=== PATIENT | female | born 1970 | race Caucasian/White ===

== ENCOUNTER 2016-06-24 14:45 | Emergency (ER) | payer OTHER ==
[~2016-06-24] VITALS: Ht 177.8 cm; Wt 99.8 kg
[~2016-06-24 14:45] MED LIST: ADVAIR DISKUS1 UNIT INH; ALBUTEROL2.5 MG/3 M INH/SOL; ALPRAZOLAM2 MG PO; BENZONATATE100 M1 PO; BENZTROPINE MESY2 MG PO; COMBIVENT RESPI1 SPR INH; COMBIVENT RESPIM4 GM INH; ESCITALOPRAM10 MG PO; FEXMID7.5 MG PO; FLOVENT HFA12 G1 INH; GABAPENTIN300 MG PO; HALDOL 5MG TABLE5 MG PO; HALOPERIDOL2 MG PO; LIDODERM1 EACH TOP; LORAZEPAM0.5 M1 PO; NARCAN4 MG NAS; NEXIUM40 M1 PO; OXYCODONE HCL10 M2 PO; PAROXETINE HCL30 M1 PO; PERCOCET 5-3251 EACH PO; PREDNISONE50 M1 PO; PROVENTIL HFA6.7 GM PO; REMERON30 MG PO; SEROQUEL XR400 M1 PO; SEROQUEL XR50 M1 PO; ULTRAM(MONOGRAP50 MG PO; VITAMIN D250000 UNIT PO; ZITHROMAX250 M2 PO
[2016-06-24 14:53] VITALS: BP 137/94
--- NOTE | 2016-06-24 15:22 | ED GENERAL ADULT ---
History of Present Illness General Chief Complaint: Psychiatric Related Complaint Stated Complaint: ANXIETY Source: patient, old records Exam Limitations: no limitations Vital Signs & Intake/Output Vital Signs & Intake/Output Vital Signs Date Time Temp Pulse Resp B/P Pulse O2 O2 Flow FiO2 Ox Delivery Rate 06/24 1453 98.3 89 16 137/94 100 Room Air Allergies Coded Allergies: Penicillins (RASH 10/16/15) aspirin (HIVES 10/16/15) red dye (SWOLLEN TOUNGE 10/16/15) Reconcile Medications Albuterol Sulfate 2.5 MG/3 ML VIAL.NEB 1 Vial INH/TANJA PRN ASTHMA/COPD/ EMPHYSEMA (Reported) Benzonatate 100 MG CAPSULE 1 CAP PO TID COUGH (Reported) Cyclobenzaprine HCl (Fexmid) 7.5 MG TABLET 1 TAB PO BID MUSCLE SPASMS ( Reported) Ergocalciferol (Vitamin D2) (Vitamin D2) 50,000 UNIT CAPSULE 1 CAP PO QW SUPPLEMENT (Reported) Esomeprazole (Nexium) 40 MG CAPSULE.DR 1 CAP PO DAILY GI (Reported) Fluticasone Propionate (Flovent Hfa) 12 GM AER.W.ADAP 2 PUF INH BID ASTHMA/ COPD/EMPHYSEMA (Reported) Ipratropium/Albuterol Sulfate (Combivent Respimat Inhal [place]) 4 GM MIST.INHAL 2-3 PUFF INH DAILY ASTHMA/COPD/EMPHYSEMA (Reported) Lidocaine (Lidoderm) 1 EACH ADH..PATCH 1 PAT TOP PRN PAIN (Reported) may wear up to 12 hours Lorazepam 0.5 MG TABLET 1 TAB PO DAILY PRN ANXIETY (Reported) Naloxone HCl (Narcan) 4 MG SPRAY 4 MG ELISEO AD PRN OPIOID OVERUSE (Reported) Oxycodone HCl 10 MG TABLET 1 TAB PO Q6H PAIN (Reported) Paroxetine HCl 30 MG TABLET 1 TAB PO QHS MENTAL HEALTH (Reported) Quetiapine Fumarate (Seroquel XR) 400 MG TAB.ER.24H 1 TAB PO QPM MENTAL HEALTH (Reported) Quetiapine Fumarate (Seroquel XR) 50 MG TAB.ER.24H 1 TAB PO QPM MENTAL HEALTH (Reported) Triage Note: PT TO ED FROM PD LOCK UP, REPORTS SHE WAS DRINKING HEAVILY LAST NIGHT WITH HER COUSIN AND ENDED UP GETTING ARRESTED, PT IS UNSURE WHY SHE WAS ARRESTED STATING "I WAS TOTALLY BLACKED OUT, I DONT NORMALLY DRINK LIKE THAT." PT STATES SHE SUFFERS FROM SEVERE ANXIETY AND WASN'T ABLE TO TAKE HER 1 MG XANAX THIS AM BECAUSE SHE WAS IN LOCK UP. DENIES SI/HI, JUST REQUESTING A XANAX. Triage Nurses Notes Reviewed? yes : No Patient currently breastfeeds: No HPI: Patient is a 45-year-old female presents complaining of anxiety and low back pain. Patient reports she has not had her Xanax since yesterday. Patient takes 1 mg of Xanax 3 times a day. Patient one out drinking alcohol yesterday evening and then awoke in police lockup. Patient does not recall the events that led to her getting arrested. Due to being in custody patient has not been able to take her antianxiety medication. Patient reports anxiety is currently severe. Patient also reporting low back pain. Patient has a history of chronic low back pain, pain is consistent with her chronic pain. Patient does not recall any fall or known trauma. Patient denies headache, neck pain, illicit substance ingestion. (NESTOR BARBOSA) Past History Travel History Traveled to [place] past 21 day No Medical History Any Pertinent Medical History? 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 No (NESTOR BARBOSA) Review of Systems Review of Systems Constitutional: Reports: no symptoms. EENTM: Reports: no symptoms. Respiratory: Denies: cough, short of breath. Cardiovascular: Denies: chest pain. GI: Denies: abdominal pain, nausea, vomiting. Genitourinary: Reports: no symptoms. Musculoskeletal: Reports: back pain. Denies: neck pain. Skin: Reports: no symptoms. Neurological/Psychological: Reports: anxiety. Denies: headache, numbness. Hematologic/Endocrine: Denies: bruising, bleeding. Immunologic/Allergic: Denies: splenectomy. (NESTOR BARBOSA) Physical Exam Physical Exam General Appearance: well developed/nourished, alert, awake, anxious Head: atraumatic, normal appearance Eyes: Bilateral: normal appearance, PERRL, EOMI. Ears, Nose, Throat: normal pharynx, normal ENT inspection, hearing grossly normal Neck: normal inspection, supple, full range of motion, no midline tenderness Respiratory: normal breath sounds, no respiratory distress, lungs clear Cardiovascular: regular rate/rhythm Gastrointestinal: soft, non-tender Back: mild bilateral lumbar paraspinal tenderness. Surgical scar midline lumbar. No midline lumbar tenderness. No signs of trauma. Extremities: normal inspection, normal capillary refill, normal range of motion, no edema Neurologic/Psych: no motor/sensory deficits, awake, alert, oriented x 3, no suicidal or homicidal ideation. No apparent hallucinations. Skin: warm/dry Core Measures ACS in differential dx? No CVA/TIA Diagnosis: No Severe Sepsis Present: No Septic Shock Present: No (NESTOR BARBOSA) Progress Differential Diagnoses I considered the following diagnoses in my evaluation of the patient: Anxiety, depression, intoxication, polysubstance abuse, trauma Plan of Care: Current Medications Sig/Lorenzo Start time Last Medication Dose Stop Time Status Admin Alprazolam 1 MG ONCE ONE 06/24 1530 AC (Xanax) 06/24 1531 Ketorolac 30 MG ONCE ONE 06/24 1530 AC Tromethamine 06/24 1531 (Toradol) No red flags on exam regarding patient's back pain. No signs of trauma on exam. No suicidal or homicidal ideation. Patient appears stable for discharge. (NESTOR BARBOSA) Initial ED EKG: none (NESTOR BARBOSA) Departure Departure Time of Disposition: 1528 Disposition: HOME OR SELF CARE Condition: Stable Clinical Impression Primary Impression: Anxiety Secondary Impressions: Acute exacerbation of chronic low back pain Referrals: GHAZAL SINCLAIR (PCP/Family) Additional Instructions: Follow-up with your primary care provider if no improvement by tomorrow. Return to the emergency department if worsening of symptoms. Departure Forms: Customer Survey General Discharge Information (NESTOR BARBOSA) PA/BANQUET FOOD SERVER Co-Sign Statement Statement: ED Attending supervision documentation- [] I saw and evaluated the patient. I have also reviewed all the pertinent lab results and diagnostic results. I agree with the findings and the plan of care as documented in the PA's/BANQUET FOOD SERVER's documentation. x I have reviewed the ED Record and agree with the PA's/BANQUET FOOD SERVER's documentation. [] Additions or exceptions (if any) to the PAs/BANQUET FOOD SERVER's note and plan are summarized below: [] (DAYANA MONGE,ZACH) Critical Care Note Critical Care Note Critical Care Time: non-applicable (JUAN ATWOOD,NESTOR)
== END 2016-06-24 15:49 ==
LOC: ERH 14:45
DX: F41.9 Anxiety disorder, unspecified (principal); M54.5 Low back pain
CPT/HCPCS: 96372; J1885

== ENCOUNTER 2016-07-26 17:21 | Emergency (ER) | payer OTHER ==
[~2016-07-26] VITALS: Ht 177.8 cm; Wt 90.7 kg
[2016-07-26 17:40] VITALS: BP 135/85
[2016-07-26] MEDS ORDERED: PERCOCET 5-3251 EACH PO (19:21)
--- NOTE | 2016-07-26 19:22 | ED HEAD/FACIAL INJ COMPLAINT ---
History of Present Illness General Chief Complaint: Fall Stated Complaint: BIBA FALL; BROKEN TEETH Source: patient, old records Exam Limitations: no limitations Vital Signs & Intake/Output Vital Signs & Intake/Output Vital Signs Date Time Temp Pulse Resp B/P Pulse O2 O2 Flow FiO2 Ox Delivery Rate 07/26 1917 100 Room Air 07/26 1740 97.3 91 22 135/85 97 Allergies Coded Allergies: Penicillins (RASH 10/16/15) aspirin (HIVES 10/16/15) red dye (SWOLLEN TOUNGE 10/16/15) Reconcile Medications Albuterol Sulfate 2.5 MG/3 ML VIAL.NEB 1 Vial INH/TANJA PRN ASTHMA/COPD/ EMPHYSEMA (Reported) Benzonatate 100 MG CAPSULE 1 CAP PO TID COUGH (Reported) Cyclobenzaprine HCl (Fexmid) 7.5 MG TABLET 1 TAB PO BID MUSCLE SPASMS ( Reported) Ergocalciferol (Vitamin D2) (Vitamin D2) 50,000 UNIT CAPSULE 1 CAP PO QW SUPPLEMENT (Reported) Esomeprazole (Nexium) 40 MG CAPSULE.DR 1 CAP PO DAILY GI (Reported) Fluticasone Propionate (Flovent Hfa) 12 GM AER.W.ADAP 2 PUF INH BID ASTHMA/ COPD/EMPHYSEMA (Reported) Ipratropium/Albuterol Sulfate (Combivent Respimat Inhal [place]) 4 GM MIST.INHAL 2-3 PUFF INH DAILY ASTHMA/COPD/EMPHYSEMA (Reported) Lidocaine (Lidoderm) 1 EACH ADH..PATCH 1 PAT TOP PRN PAIN (Reported) may wear up to 12 hours Lorazepam 0.5 MG TABLET 1 TAB PO DAILY PRN ANXIETY (Reported) Naloxone HCl (Narcan) 4 MG SPRAY 4 MG ELISEO AD PRN OPIOID OVERUSE (Reported) Oxycodone HCl 10 MG TABLET 1 TAB PO Q6H PAIN (Reported) Oxycodone HCl/Acetaminophen (Percocet 5-325 MG Tablet) 5 MG-325 MG TABLET 1 TAB PO Q4-6 PRN PRN pain Paroxetine HCl 30 MG TABLET 1 TAB PO QHS MENTAL HEALTH (Reported) Quetiapine Fumarate (Seroquel XR) 400 MG TAB.ER.24H 1 TAB PO QPM MENTAL HEALTH (Reported) Quetiapine Fumarate (Seroquel XR) 50 MG TAB.ER.24H 1 TAB PO QPM MENTAL HEALTH (Reported) Triage Note: PER PT SLIPPED ON ICE AND CHIPPED TOOTH REPORTS 02/19 PAIN ARRIVES VIA EMS. NO LOC Triage Nurses Notes Reviewed? yes HPI: Patient states that she slipped on the ice falling forward striking her front teeth on the ground. She has pain to her teeth, she has chronic carious teeth and dental problems. This occurred earlier today. She also has history of chronic pain medication use due to chronic back pain. She has no other injury from fall. She denies any worsening back pain or trauma to the back. No neurologic symptoms no weakness no numbness. No swelling or ecchymosis no bleeding no loose teeth. (NESTOR NAVARRO) Past History Travel History Traveled to [place] past 21 day No Medical History Any Pertinent Medical History? 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 No (NESTOR NAVARRO) Review of Systems Review of Systems Constitutional: Reports: see HPI. EENTM: Reports: see HPI. Respiratory: Reports: no symptoms. Cardiovascular: Reports: no symptoms. GI: Reports: no symptoms. Genitourinary: Reports: no symptoms. Musculoskeletal: Reports: no symptoms. Skin: Reports: no symptoms. Neurological/Psychological: Reports: no symptoms. Hematologic/Endocrine: Reports: no symptoms. Immunologic/Allergic: Reports: no symptoms. All Other Systems: Reviewed and Negative (NESTOR NAVARRO) Physical Exam Physical Exam General Appearance: well developed/nourished Cranial Nerves: normal hearing, normal speech, PERRL Comments: Well-developed well-nourished no apparent distress. HEENT: Atraumatic, extraocular motion intact Patient has generally poor dentition, mild gingival hypertrophy, multiple carious teeth. There are no signs of trauma, no swelling, no ecchymosis, no acutely fractured or loose teeth, no gum swelling or injury no buccal region swelling or injury. No midfacial instability. No bleeding. Neck: Supple, no lymphadenopathy Back: Nontender Respiratory: No respiratory distress Extremities: No edema, full range of motion Neuro: Alert and oriented x3 Psych: Mood affect normal, normal memory normal judgment. Skin: Warm and dry, no rash on exposed skin (NESTOR NAVARRO) Progress Differential Diagnosis: corneal abrasion, c-spine injury, facial fracture, globe injury, ICH, orbit fracture, skull fracture Plan of Care: Current Medications Sig/Lorenzo Start time Last Medication Dose Stop Time Status Admin Ketorolac 30 MG ONCE ONE 07/26 1929 UNVr Tromethamine 07/26 1930 (Toradol) Oxycodone/ 1 TAB ONCE ONE 07/26 1929 UNVr Acetaminophen 07/26 1930 (Percocet) Comments: Patient requested an injection of Dilaudid for her pain from the fall. I discussed with her that I don't feel that this is appropriate considering there are no objective signs of any trauma at all. She was given a Percocet and a prescription for several to go home with. She states she has appointment to see her dentist tomorrow (NESTOR NAVARRO) Departure Departure Disposition: HOME OR SELF CARE Condition: Stable Clinical Impression Primary Impression: Pain, dental Referrals: ZAKI BRAVO,GHAZAL Ruiz (PCP/Family) Additional Instructions: Take medication as directed for pain. Please follow up with her dentist tomorrow as scheduled Departure Forms: Customer Survey General Discharge Information Prescriptions: Current Visit Scripts Oxycodone HCl/Acetaminophen (Percocet 5-325 MG Tablet) 1 TAB PO Q4-6 PRN PRN pain #8 TAB (NESTOR NAVARRO) PA/PILL MACHINE OPERATOR Co-Sign Statement Statement: ED Attending supervision documentation- [] I saw and evaluated the patient. I have also reviewed all the pertinent lab results and diagnostic results. I agree with the findings and the plan of care as documented in the PA's/PILL MACHINE OPERATOR's documentation. x I have reviewed the ED Record and agree with the PA's/PILL MACHINE OPERATOR's documentation. [] Additions or exceptions (if any) to the PAs/PILL MACHINE OPERATOR's note and plan are summarized below: [] (DAYANA MONGE,ZACH)
== END 2016-07-26 19:33 ==
LOC: ERH 17:21
DX: K08.89 Other specified disorders of teeth and supporting structures (principal)
CPT/HCPCS: 96372; J1885

== ENCOUNTER 2016-07-29 16:20 | Emergency (ER) | payer OTHER ==
[2016-07-29 16:25] VITALS: BP 138/85
--- NOTE | 2016-07-29 16:44 | ED THROAT/DENTAL COMPLAINT ---
History of Present Illness General Chief Complaint: Sore Throat, Dental Pain Stated Complaint: TOOTH PAIN Source: patient Exam Limitations: no limitations Vital Signs & Intake/Output Vital Signs & Intake/Output Vital Signs Date Time Temp Pulse Resp B/P Pulse O2 O2 Flow FiO2 Ox Delivery Rate 07/29 1625 97.4 105 16 138/85 97 Room Air Allergies Coded Allergies: Penicillins (RASH 10/16/15) aspirin (HIVES 10/16/15) red dye (SWOLLEN TOUNGE 10/16/15) Reconcile Medications Albuterol Sulfate 2.5 MG/3 ML VIAL.NEB 1 Vial INH/TANJA PRN ASTHMA/COPD/ EMPHYSEMA (Reported) Benzonatate 100 MG CAPSULE 1 CAP PO TID COUGH (Reported) Clindamycin HCl (Cleocin HCl) 300 MG CAPSULE 1 CAP PO TID DENTAL PAIN Clonazepam 0.5 MG TABLET 1 TAB PO BID ANXIETY (Reported) Cyclobenzaprine HCl (Fexmid) 7.5 MG TABLET 1 TAB PO BID MUSCLE SPASMS ( Reported) Esomeprazole (Nexium) 40 MG CAPSULE.DR 1 CAP PO DAILY GI (Reported) Fluticasone Propionate (Flovent Hfa) 12 GM AER.W.ADAP 2 PUF INH BID ASTHMA/ COPD/EMPHYSEMA (Reported) Ipratropium/Albuterol Sulfate (Combivent Respimat Inhal [place]) 4 GM MIST.INHAL 2-3 PUFF INH DAILY ASTHMA/COPD/EMPHYSEMA (Reported) Lorazepam 0.5 MG TABLET 1 TAB PO DAILY PRN ANXIETY (Reported) Lurasidone HCl (Latuda) 60 MG TABLET 1 TAB PO QPM MENTAL HEALTH (Reported) Naloxone HCl (Narcan) 4 MG SPRAY 4 MG ELISEO AD PRN OPIOID OVERUSE (Reported) Paroxetine HCl 30 MG TABLET 1 TAB PO QHS MENTAL HEALTH (Reported) Quetiapine Fumarate (Seroquel XR) 300 MG TAB.ER.24H 1 TAB PO QPM MENTAL HEALTH (Reported) Triage Note: TRIAGE; PT TO ED WITH DENTAL PAIN SINCE LAST SATURDAY. STATES SHE FELL WHILE SHOVELING SNOW AND HIT HER FACE. STATES CAME HERE AND WAS GIVEN 5MG PERCOCETS, WHICH ARE NOT HELPING, WENT TO DENTIST NEXT DAY AND HAD 5 TEETH PULLED, BUT STATES THEY FORGOT ONE AND IS HAVING PAIN CONTINUED THERE. Triage Nurses Notes Reviewed? yes Onset: Abrupt Duration: day(s):, constant, continues in ED Timing: recent history Injury Environment: home Severity: moderate, severe No Modifying Factors: none HPI: 46-year-old female comes into emergency room with complaints of severe upper dental pain. Symptoms have been going on for the past few days. Patient was seen here the other day. Patient reports that she had fallen onto her teeth. Patient had a few teeth pulled by the dentist. Patient reports she still having sharp pain to her left upper tooth. Patient reports that the pain is so severe. Patient is taking the Percocet at home. There is no fever chills vomiting. Denies any other symptoms of symptoms. No SI HI. Past History Travel History Traveled to [place] past 21 day No Medical History Any Pertinent Medical History? 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 No Review of Systems Review of Systems Constitutional: Reports: no symptoms. EENTM: Reports: see HPI. Respiratory: Reports: no symptoms. Cardiovascular: Reports: no symptoms. GI: Reports: no symptoms. Genitourinary: Reports: no symptoms. Musculoskeletal: Reports: no symptoms. Skin: Reports: no symptoms. Neurological/Psychological: Reports: no symptoms. Hematologic/Endocrine: Reports: no symptoms. Immunologic/Allergic: Reports: no symptoms. All Other Systems: Reviewed and Negative Physical Exam Physical Exam General Appearance: well developed/nourished, mild distress Head: atraumatic Eyes: Bilateral: normal appearance. Ears: Bilateral: other (normal inspection). Nose: normal inspection Mouth/Throat: poor dentition, tenderness to left upper molar, incisor Neck: normal inspection Cardiovascular/Respiratory: normal breath sounds, regular rate/rhythm Back: normal inspection Neurologic/Psych: awake, alert, oriented x 3, normal gait, normal mood/affect Skin: intact, normal color Comments: no si/hi Diagram Dental: 1) tenderness, no abscess seen, no other signs of infection Core Measures ACS in differential dx? No Severe Sepsis Present: No Septic Shock Present: No Progress Differential Diagnosis: aspirated tooth, carious tooth, epiglottitis, Ludwigs angina, meningitis, odontogenic abscess, sophia-tonsillar abscess, pharyngeal for. body, stomatitis/gingivitis, strep pharyngitis, tooth fracture Plan of Care: see below Departure Departure Disposition: HOME OR SELF CARE Condition: Stable Clinical Impression Primary Impression: Pain, dental Referrals: ZAKI BRAVO,GHAZAL Ruiz (PCP/Family) Additional Instructions: Take clindamycin as prescribed. Take her Percocet that was prescribed to you at home. Follow-up with dentist tomorrow. Please go over all results of today's visit with your primary care doctor. Contact your primary care doctor to let them know you were here in the emergency room. There may be nonspecific findings which may not be related to your visit today here in the emergency room but may require further evaluation and chronic monitoring by your primary care doctor. If you had a laceration today the chance of foreign body always remains. You should follow-up with your primary care doctor for recheck in 3-5 days for a wound check. If you had an x-ray done there is a chance that a fracture could have been missed on initial read and you should follow-up with your primary care doctor for repeat x-rays if symptoms persist. If your blood pressure was elevated here in the emergency room please have rechecked by her primary care doctor within the next 48 hours by your primary care doctor. If you were prescribed a narcotic here in the emergency room or any type of controlled substances you're not allowed to drive while taking this medication or operate any type of heavy machinery. Narcotics can make you feel lightheaded dizziness nausea and can cause constipation. You may need to hop picker a stool softener. Thank you for choosing [facility] emergency room. Please return to the emergency room immediately if you have any other concerns worsening of symptoms. Departure Forms: Customer Survey General Discharge Information Prescriptions: Current Visit Scripts Clindamycin HCl (Cleocin HCl) 1 CAP PO TID #21 CAP Comments 07/29/2016 4:56:18 PM Patient is pleading for a shot of narcotics for pain. I told the patient it is not indicated at this time. Patient has Percocet at home. Patient is allergic to NSAIDs. I offered the patient a tramadol prescription to take in conjunction as needed for breakthrough pain and she declined because she reports it does not help her with her pain. Patient is asking for Vicodin to go home with. Patient told that she can take her Percocet at home. Patient has no acute emergency that requires her to get IM or IV pain medication. Patient can follow-up with dentist. Patient was very upset that she was not going to get narcotics and through her paperwork at the nurse. Patient was started on clindamycin. Patient told that she needs to see dentist.
[2016-07-29] MEDS ORDERED: LATUDA60 M1 PO (16:47)
[2016-07-29] MEDS ORDERED: SEROQUEL XR300 M1 PO (16:47)
[2016-07-29] MEDS ORDERED: CLONAZEPAM0.5 M2 PO (16:48)
[2016-07-29] MEDS ORDERED: CLEOCIN HCL300 M1 PO (16:49)
== END 2016-07-29 17:01 ==
LOC: ERH 16:20
DX: K08.89 Other specified disorders of teeth and supporting structures (principal)

== ENCOUNTER 2016-08-09 19:53 | Emergency (ER) | payer OTHER ==
[~2016-08-09] VITALS: Ht 175.3 cm; Wt 112.5 kg
[~2016-08-09 19:53] MED LIST changes: +CLEOCIN HCL300 M1 PO; +CLONAZEPAM0.5 M2 PO; +LATUDA60 M1 PO; +SEROQUEL XR300 M1 PO
[2016-08-09 21:02] LABS: ABSOLUTE BASOPHIL COUNT 0.1 /CUMM (0.0-0.2); ABSOLUTE EOSINOPHIL COUNT 0.1 /CUMM (0.0-0.7); ABSOLUTE GRANULOCYTE CT 5.9 /CUMM (1.4-6.5); ABSOLUTE LYMPH COUNT 3.3 /CUMM (1.2-3.4); ABSOLUTE MONOCYTE COUNT 0.9 /CUMM (0.10-0.60); BASOPHIL % 0.6 % (0.0-2.0); GRANULOCYTE % 57.4 % (42.2-75.2); HEMATOCRIT 33.9 % (37-47); MEAN CORPUSCULAR HGB CONC 33.6 G/DL (33.0-37.0); MEAN CORPUSCULAR VOLUME 89.1 FL (81.0-99.0); MEAN PLATELET VOLUME 8.3 FL (7.4-10.4); PLATELET COUNT 287 /CUMM (130-400); RBC DISTRIBUTION WIDTH 13.7 % (11.5-14.5); RED BLOOD CELL CT 3.81 /CUMM (4.20-5.40); WHITE BLOOD CELL COUNT 10.4 /CUMM (4.8-10.8)
--- NOTE | 2016-08-09 22:26 | ED GI/GU/ABDOMINAL COMPLAINT ---
History of Present Illness General Chief Complaint: General Adult Stated Complaint: LEFT SIDE PAIN, STOMACH DISTENDED PER PT Source: patient, family, old records Exam Limitations: no limitations Vital Signs & Intake/Output Vital Signs & Intake/Output Vital Signs Date Time Temp Pulse Resp B/P Pulse O2 O2 Flow FiO2 Ox Delivery Rate 08/10 0145 98.4 89 18 132/82 97 08/09 2020 98.6 96 18 137/85 97 Room Air ED Intake and Output 08/10 0000 08/09 1200 Intake Total 0 Output Total Balance 0 Intake, Oral 0 Patient 248 lb Weight Allergies Coded Allergies: Penicillins (RASH 10/16/15) aspirin (HIVES 10/16/15) hydrocodone (HIVES 08/09/16) red dye (SWOLLEN TOUNGE 10/16/15) Reconcile Medications Albuterol Sulfate 2.5 MG/3 ML VIAL.NEB 1 Vial INH/TANJA PRN ASTHMA/COPD/ EMPHYSEMA (Reported) Benzonatate 100 MG CAPSULE 1 CAP PO TID COUGH (Reported) Clindamycin HCl (Cleocin HCl) 300 MG CAPSULE 1 CAP PO TID DENTAL PAIN Clonazepam 0.5 MG TABLET 1 TAB PO BID ANXIETY (Reported) Cyclobenzaprine HCl (Fexmid) 7.5 MG TABLET 1 TAB PO BID MUSCLE SPASMS ( Reported) Esomeprazole (Nexium) 40 MG CAPSULE.DR 1 CAP PO DAILY GI (Reported) Fluticasone Propionate (Flovent Hfa) 12 GM AER.W.ADAP 2 PUF INH BID ASTHMA/ COPD/EMPHYSEMA (Reported) Ipratropium/Albuterol Sulfate (Combivent Respimat Inhal Maceo) 4 GM MIST.INHAL 2-3 PUFF INH DAILY ASTHMA/COPD/EMPHYSEMA (Reported) Lorazepam 0.5 MG TABLET 1 TAB PO DAILY PRN ANXIETY (Reported) Lurasidone HCl (Latuda) 60 MG TABLET 1 TAB PO QPM MENTAL HEALTH (Reported) Naloxone HCl (Narcan) 4 MG SPRAY 4 MG ELISEO AD PRN OPIOID OVERUSE (Reported) Oxycodone HCl/Acetaminophen (Percocet 5-325 MG Tablet) 5 MG-325 MG TABLET 1-2 TAB PO Q6P severe pain Fill after previous prescription completed. Paroxetine HCl 30 MG TABLET 1 TAB PO QHS MENTAL HEALTH (Reported) Prednisone 20 MG TABLET 1 TAB PO BID bronchospasm Quetiapine Fumarate (Seroquel XR) 300 MG TAB.ER.24H 1 TAB PO QPM MENTAL HEALTH (Reported) Triage Note: PT TO ED C/O LUQ PAIN WITH "BILE COLORED DIARRHEA" FOR 2-3 DAYS. STATES HAS FELT BLOATED FOR 2 WEEKS. +N/V. LAST VOMITTED LAST NIGHT (BILE) URINARY FREQUENCY "BUT I'M DRINKING A LOT" SAW PCP ABOUT SAME THIS AM, TOOK A PERCOCET 5 APPROX 1 HR HEALTH ADVOCATE. Triage Nurses Notes Reviewed? yes LMP (ages 10-50): unknown ? n Is pt currently ? No Onset: 1 month Duration: week(s):, constant, continues in ED, getting worse Timing: recent history Quality/Severity: aching, fullness, severe, vomiting Location: left lower quadrant, left upper quadrant Radiation: no radiation Activities at Onset: none Prior Abdominal Problems: none Past Sexual History: Unobtainable at this time Modifying Factors: Worsens With: eating, palpation. Associated Symptoms: abdominal pain, diarrhea, loss of appetite, nausea/vomiting , weakness HPI: 1 month prior to admission patient complains of left-sided abdominal pain described as fullness moderate to severe associated with distention nonradiating worse with cough and deep breath movement. She has had recent fall fractured teeth requiring extraction and placed on antibiotics which she did not take. She denies fever chills shortness of breath headache dysuria rash bleeding. Past History Travel History Traveled to [place] past 21 day No Medical History Any Pertinent Medical History? 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 No Review of Systems Review of Systems Constitutional: Reports: see HPI, malaise. EENTM: Reports: no symptoms. Respiratory: Reports: see HPI, cough. Cardiovascular: Reports: see HPI, chest pain. GI: Reports: see HPI, abdominal pain, distention, nausea, vomiting. Genitourinary: Reports: no symptoms. Musculoskeletal: Reports: no symptoms. Skin: Reports: no symptoms. Neurological/Psychological: Reports: no symptoms. Hematologic/Endocrine: Reports: no symptoms. Immunologic/Allergic: Reports: no symptoms. All Other Systems: Reviewed and Negative Physical Exam Physical Exam General Appearance: well developed/nourished, alert, awake, anxious, severe distress, obese Head: atraumatic, normal appearance Eyes: Bilateral: normal appearance, PERRL, EOMI, normal inspection. Ears, Nose, Throat, Mouth: hearing grossly normal, moist mucous membrane Neck: normal inspection, supple, full range of motion, normal alignment Respiratory: chest non-tender, no respiratory distress, quiet respiration, lungs clear, decreased breath sounds Cardiovascular: regular rate/rhythm, normal peripheral pulses, norml femoral pulses equa Peripheral Pulses: 4+ carotid (R), 4+ carotid (L) Gastrointestinal: normal bowel sounds, no organomegaly, distention Back: normal inspection, normal range of motion Extremities: normal range of motion, no ligament instability Neurologic/Psych: no motor/sensory deficits, awake, alert, oriented x 3, normal gait, 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 No Severe Sepsis Present: No Septic Shock Present: No Progress Differential Diagnosis: gastritis, kidney stone, ovarian cyst, SBO Plan of Care: Orders Procedure Date/time Status Add-on Test (ER Only) 08/09 2222 Active URINE 08/09 2053 Complete URINALYSIS 08/09 2024 Complete LIPASE 08/09 2024 Complete COMPREHENSIVE METABOLIC PANEL 08/09 2024 Complete CBC WITHOUT DIFFERENTIAL 08/09 2024 Complete AMYLASE 08/09 2024 Complete Laboratory Tests 08/09/162053: Urine Color YEL, Urine Clarity CLDY H, Urine pH 6.0, Ur Specific [place] 1.010, Urine Protein NEG, Urine Ketones NEG, Urine Nitrite NEG, Urine Bilirubin NEG, Urine Urobilinogen 0.2, Ur Leukocyte Esterase NEG, Ur Microscopic EXAM NOT REQUIRED, Urine Hemoglobin NEG, Urine Glucose NEG, Urine Test NEGATIVE 08/09/162042: CBC w Diff NO MAN DIFF REQ, RBC 3.81 L, MCV 89.1, MCH 30.0, RDW 13.7, MPV 8.3, Gran % 57.4, Lymphocytes % 32.1, Monocytes % 8.9, Eosinophils % 1.0, Basophils % 0.6, Absolute Granulocytes 5.9, Absolute Lymphocytes 3.3, Absolute Monocytes 0.9 H, Absolute Eosinophils 0.1, Absolute Basophils 0.1, PUBS MCHC 33.6 08/09/162024: Anion Gap 8, Estimated GFR > 60, BUN/Creatinine Ratio 18.0, Glucose 88, Calcium 8.3 L, Total Bilirubin 0.3, AST 38 H, ALT 48, Alkaline Phosphatase 79, Total Protein 6.2 L, Albumin 3.5, Globulin 2.7, Albumin/Globulin Ratio 1.3, Amylase < 30 L, Lipase 14 L Diagnostic Imaging: Viewed by Me: Radiology Read, CT Scan. Discussed w/RAD: Radiology Read, CT Scan. Radiology Impression: There is a small rounded focus of patchy opacification at the left lung base within the posterior basal segment. Within the left lower lobe adjacent to the pleura on image 17/784, there is a 2 mm nodule. Also within the left lower lobe on image 29, there is a 3 mm nodule. Within the lateral segment right middle lobe, there is a 2 mm nodular density adjacent to the pleura on image 1/784. The visualized lung bases are otherwise clear. The visualized portions of the heart are unremarkable. There is a small hiatal hernia. CXR Impression: Ill-defined opacities within the posterior basal segment of the left lower lobe were better illustrated on the recent CT scan of the abdomen and pelvis. No overt consolidative disease. Initial ED EKG: none Departure Departure Time of Disposition: 113 Disposition: HOME OR SELF CARE Condition: Stable Clinical Impression Primary Impression: Pleurisy Secondary Impressions: Pneumonia Qualifiers: Pneumonia type: due to unspecified organism Laterality: left Lung location: lower lobe of lung Qualified Code: J18.1 - Lobar pneumonia, unspecified organism Referrals: ZAKI BRAVO,GHAZAL Ruiz (PCP/Family) Additional Instructions: Take your clindamycin 3 times a day Departure Forms: Customer Survey General Discharge Information Prescriptions: Current Visit Scripts Prednisone 1 TAB PO BID #10 TAB Oxycodone HCl/Acetaminophen (Percocet 5-325 MG Tablet) 1-2 TAB PO Q6P #15 TAB Fill after previous prescription completed.
--- NOTE | 2016-08-09 23:38 | CT SCAN REPORT ---
EXAMINATION: CT ABDOMEN AND PELVIS WITH CONTRAST CLINICAL INFORMATION: Left-sided abdominal pain. Distention. COMPARISON: None. TECHNIQUE: Contiguous axial thin section helical images of the abdomen and pelvis were performed following the administration of 94 mL of intravenous Optiray 320. The data set was reformatted in the coronal and sagittal planes and reviewed on an independent workstation. DLP: 1206 mGy-cm. FINDINGS: There is a small rounded focus of patchy opacification at the left lung base within the posterior basal segment. Within the left lower lobe adjacent to the pleura on image 17/784, there is a 2 mm nodule. Also within the left lower lobe on image 29, there is a 3 mm nodule. Within the lateral segment right middle lobe, there is a 2 mm nodular density adjacent to the pleura on image 1/784. The visualized lung bases are otherwise clear. The visualized portions of the heart are unremarkable. There is a small hiatal hernia. The liver is of normal size and attenuation without focal lesions nor intrahepatic biliary ductal dilation. A normal gallbladder is identified. There is no wall thickening or discernible pericholecystic fluid. The spleen, pancreas, adrenal glands are unremarkable. Both kidneys are of normal size and attenuation without hydronephrosis or nephrolithiasis. Following the administration of IV contrast, prompt symmetric nephrograms are displayed. There is no abdominal free fluid. There is neither mesenteric nor retroperitoneal lymphadenopathy. Normal unopacified loops of small and large bowel are identified. A normal appendix is identified There is trace likely physiologic pelvic free fluid. The urinary bladder is unremarkable. There is neither pelvic nor inguinal lymphadenopathy. Bone windows: Neither sclerotic nor lytic bone lesions are identified. Posterior spinal fusion hardware is intact. There is disc height loss at L4/L5 and L5/S1. Incidental note is made of a vertebral hemangioma within L1. IMPRESSION: No evidence for acute abdominal or pelvic inflammatory or infectious processes. Small hiatal hernia. 3 pulmonary nodules/nodular densities, none greater than 3 mm. Various management parameters for solitary pulmonary nodules are in the literature. According to the Fleischner Society, recommendations for pulmonary nodules are as follows: Nodule size < or = to 4 mm in LOW RISK PATIENTS: No follow up needed. Nodule size < or = to 4 mm in HIGH RISK PATIENTS: Follow up CT at 12 months; if unchanged, no further follow up. Nodule size > 4-6 mm in LOW RISK PATIENTS: Follow up CT at 12 months; if unchanged, no further follow up. Nodule size > 4-6 mm in HIGH RISK PATIENTS: Initial follow up CT at 6-12 months, then at 18-24 months if no change. Nodule size > 6-8 mm in LOW RISK PATIENTS: Initial follow up CT at 6-12 months, then at 18-24 months if no change. Nodule size > 6-8 mm in HIGH RISK PATIENTS: Initial follow up CT at 3-6 months, then 9-12 months and 24 months if no change. Nodule size > 8 mm in LOW RISK PATIENTS: Follow up CT at around 3, 9, and 24 months, dynamic contrast-enhanced CT, PET, and/or biopsy. Nodule size > 8 mm in HIGH RISK PATIENTS: Same as for low-risk patients.
--- NOTE | 2016-08-10 01:07 | RADIOLOGY REPORT ---
EXAMINATION: XR CHEST CLINICAL INFORMATION: Pneumonia. Question infiltrate of the left lower lobe. COMPARISON: CT scan of the abdomen and pelvis 08/09/2016. TECHNIQUE: 2 views of the chest were obtained. FINDINGS: Ill-defined opacities within the posterior basal segment of the left lower lobe were better illustrated on the recent CT scan of the abdomen and pelvis. There is no overt consolidative disease. No pleural effusion or pneumothorax. The cardiac silhouette and upper mediastinal contours are normal. No acute osseous finding. IMPRESSION: Ill-defined opacities within the posterior basal segment of the left lower lobe were better illustrated on the recent CT scan of the abdomen and pelvis. No overt consolidative disease.
[2016-08-10] MEDS ORDERED: PERCOCET 5-3251 EACH PO (01:18)
[2016-08-10] MEDS ORDERED: PREDNISONE20 M1 PO (01:18)
[2016-08-10 01:45] VITALS: BP 132/82
== END 2016-08-10 01:59 ==
LOC: ERH 19:53
PROVIDERS: Emergency Medicine
DX: R09.1 Pleurisy (principal); J18.9 Pneumonia, unspecified organism
CPT/HCPCS: 74177; 81003; 81025; 96374; 96375

== ENCOUNTER 2016-08-27 18:42 | Emergency (ER) | payer OTHER ==
[~2016-08-27] VITALS: Ht 177.8 cm; Wt 108.0 kg
[~2016-08-27 18:42] MED LIST changes: +PREDNISONE20 M1 PO
[2016-08-27 19:06] VITALS: BP 161/90
[2016-08-27 19:24] LABS: ABSOLUTE BASOPHIL COUNT 0.1 /CUMM (0.0-0.2); ABSOLUTE EOSINOPHIL COUNT 0.1 /CUMM (0.0-0.7); ABSOLUTE GRANULOCYTE CT 11.5 /CUMM (1.4-6.5); ABSOLUTE LYMPH COUNT 3.8 /CUMM (1.2-3.4); ABSOLUTE MONOCYTE COUNT 0.7 /CUMM (0.10-0.60); BASOPHIL % 0.4 % (0.0-2.0); EOSINOPHIL % 0.5 % (0-5); GRANULOCYTE % 71.4 % (42.2-75.2); HEMATOCRIT 43.2 % (37-47); MEAN CORPUSCULAR HGB 29.4 PG (27.0-31.0); MEAN CORPUSCULAR HGB CONC 32.9 G/DL (33.0-37.0); MEAN CORPUSCULAR VOLUME 89.3 FL (81.0-99.0); MEAN PLATELET VOLUME 8.1 FL (7.4-10.4); PLATELET COUNT 348 /CUMM (130-400); RBC DISTRIBUTION WIDTH 14.8 % (11.5-14.5); RED BLOOD CELL CT 4.84 /CUMM (4.20-5.40); WHITE BLOOD CELL COUNT 16.1 /CUMM (4.8-10.8)
[2016-08-27] MEDS ORDERED: ALPRAZOLAM1 M2 PO (19:50)
[2016-08-27] MEDS ORDERED: ZOLPIDEM TARTRA10 M1 PO (19:50)
--- NOTE | 2016-08-27 21:30 | CT SCAN REPORT ---
EXAMINATION: CT ABDOMEN AND PELVIS WITHOUT CONTRAST CLINICAL INFORMATION: Left-sided abdominal pain. Elevated white blood cell count. Concern for diverticulitis. COMPARISON: 08/09/2016. TECHNIQUE: Contiguous axial thin section helical images of the abdomen and pelvis were performed without oral or IV contrast. The data set was reformatted in the coronal and sagittal planes and reviewed on an independent workstation. DLP: 962 mGy-cm. FINDINGS: The visualized lung bases are clear. The visualized portions of the heart are unremarkable. The liver is of normal size and attenuation without focal lesions nor intrahepatic biliary ductal dilation. A normal gallbladder is identified. There is no wall thickening or discernible pericholecystic fluid. The spleen, pancreas, adrenal glands are unremarkable. Both kidneys are of normal size and attenuation without hydronephrosis or nephrolithiasis. There is no abdominal free fluid. There is neither mesenteric nor retroperitoneal lymphadenopathy. Normal unopacified loops of small and large bowel are identified. A normal appendix is identified. There is no pelvic free fluid. The urinary bladder is unremarkable. There is neither pelvic nor inguinal lymphadenopathy. Bone windows: Neither sclerotic nor lytic bone lesions are identified. Posterior spinal fusion hardware extending from L5 to S1 is intact without failure or migration. There is a likely vertebral hemangioma at L1. IMPRESSION: No evidence for acute abdominal or pelvic inflammatory or infectious processes. Trace likely physiologic pelvic free fluid.
[2016-08-27] MEDS ORDERED: PERCOCET 5-3251 EACH PO (21:49)
--- NOTE | 2016-08-27 21:50 | ED GI/GU/ABDOMINAL COMPLAINT ---
History of Present Illness General Chief Complaint: Abdominal Pain/Flank Pain Stated Complaint: UPPER LFT SIMRAN PAIN Source: patient, old records Exam Limitations: no limitations Vital Signs & Intake/Output Vital Signs & Intake/Output Vital Signs Date Time Temp Pulse Resp B/P Pulse O2 O2 Flow FiO2 Ox Delivery Rate 08/27 1920 Room Air 08/27 1905 98.2 89 18 161/90 99 Room Air Allergies Coded Allergies: Penicillins (RASH 10/16/15) aspirin (HIVES 10/16/15) hydrocodone (HIVES 08/09/16) red dye (SWOLLEN TOUNGE 10/16/15) Reconcile Medications Albuterol Sulfate 2.5 MG/3 ML VIAL.NEB 1 Vial INH/TANJA PRN ASTHMA/COPD/ EMPHYSEMA (Reported) Alprazolam 1 MG TABLET 1 TAB PO BID ANXIETY (Reported) Benzonatate 100 MG CAPSULE 1 CAP PO TID COUGH (Reported) Cyclobenzaprine HCl (Fexmid) 7.5 MG TABLET 1 TAB PO BID MUSCLE SPASMS ( Reported) Esomeprazole (Nexium) 40 MG CAPSULE.DR 1 CAP PO DAILY GI (Reported) Fluticasone Propionate (Flovent Hfa) 12 GM AER.W.ADAP 2 PUF INH BID ASTHMA/ COPD/EMPHYSEMA (Reported) Ipratropium/Albuterol Sulfate (Combivent Respimat Inhal [place]) 4 GM MIST.INHAL 2-3 PUFF INH DAILY ASTHMA/COPD/EMPHYSEMA (Reported) Lurasidone HCl (Latuda) 60 MG TABLET 1 TAB PO QPM MENTAL HEALTH (Reported) Naloxone HCl (Narcan) 4 MG SPRAY 4 MG ELISEO AD PRN OPIOID OVERUSE (Reported) Ondansetron (Zofran Odt) 4 MG TAB.RAPDIS 1 TAB SL TID nausea Oxycodone HCl/Acetaminophen (Percocet 5-325 MG Tablet) 5 MG-325 MG TABLET 1-2 TAB PO Q6P PRN pain Paroxetine HCl 30 MG TABLET 1 TAB PO QHS MENTAL HEALTH (Reported) Quetiapine Fumarate (Seroquel XR) 300 MG TAB.ER.24H 1 TAB PO QPM MENTAL HEALTH (Reported) Zolpidem Tartrate 10 MG TABLET 1 TAB PO QPM SLEEP (Reported) Triage Note: PT TO ED C/O LUQ PAIN 5/10 CONSTANT FOR A MONTH. SEEN HERE FOR SAME ON 3/30. "I'M STARTING TO HAVE ANXIETY ATTACKS" +NAUSEA COMES AND GOES, DENIES AT THIS TIME. TOOK ZOFRAN 3 DAYS AGO. +DIARRHEA ALSO COMES AND GOES, LAST THIS AM. DENIES UTI S/S Triage Nurses Notes Reviewed? yes ? n Is pt currently ? No Onset: Abrupt Duration: week(s): (couple), constant, continues in ED Timing: recent history Quality/Severity: moderate, sharpness, severe Radiation: no radiation No Modifying Factors: none HPI: 46-year-old female comes into the emergency room for further evaluation of left- sided abdominal pain. Patient was seen here couple weeks ago for the pain. Had a normal CAT scan was referred to gastroenterology. Patient reports persistent left-sided abdominal pain. Denies any vomiting. Denies any urinary symptoms. Some loose stools at times. Denies any other associated symptoms at this time. (YADI BARNES) Past History Travel History Traveled to [place] past 21 day No Medical History Any Pertinent Medical History? see below for history Neurological: NONE EENT: NONE Cardiovascular: NONE Respiratory: asthma, COPD, emphysema Gastrointestinal: NONE Hepatic: NONE Renal: NONE Musculoskeletal: chronic back pain, disk herniation, fracture, PAIN MANAGEMENT PULVERIZED HEEL Psychiatric: anxiety, chronic pain disorder, IN PAIN MANAGEMENT Endocrine: NONE Blood Disorders: NONE Cancer(s): NONE OB NURSE/Reproductive: NONE Tetanus Vaccine: 11/02/14 Surgical History Surgical History: DISCECTOMY RODS/SCREWS/DOWELS BACK Psychosocial History What is your primary language Swiss Tobacco Use: Current Daily Use Daily Tobacco Use Amount/Type: => 5 Cigarettes daily ETOH Use: occasional use Illicit Drug Use: denies illicit drug use Family History Hx Contributory? No (YADI BARNES) Review of Systems Review of Systems Constitutional: Reports: no symptoms. EENTM: Reports: no symptoms. Respiratory: Reports: no symptoms. Cardiovascular: Reports: no symptoms. GI: Reports: see HPI. Genitourinary: Reports: no symptoms. Musculoskeletal: Reports: no symptoms. Skin: Reports: no symptoms. Neurological/Psychological: Reports: no symptoms. Hematologic/Endocrine: Reports: no symptoms. Immunologic/Allergic: Reports: no symptoms. All Other Systems: Reviewed and Negative (YADI BARNES) Physical Exam Physical Exam General Appearance: well developed/nourished, alert, mild distress Head: atraumatic, normal appearance Eyes: Bilateral: normal appearance. Ears, Nose, Throat, Mouth: hearing grossly normal, moist mucous membrane Neck: normal inspection, full range of motion Respiratory: normal breath sounds, no respiratory distress Cardiovascular: regular rate/rhythm Gastrointestinal: soft, tenderness (left midabdomen), no guarding, no rebound tenderness Back: normal inspection Extremities: normal range of motion Neurologic/Psych: awake, alert, oriented x 3, normal gait, normal mood/affect Skin: intact, normal color Core Measures ACS in differential dx? No Severe Sepsis Present: No Septic Shock Present: No (YADI BARNES) Progress Differential Diagnosis: appendicitis, biliary colic, bowel obstruction, colon cancer, cholecystitis, diverticulitis, ectopic , gastritis, hepatitis, ischemic bowel, inflamm bowel dis, intrauterine , ovarian cyst, ovarian torsion, pancreatitis, PID/cervicitis, peptic ulcer, PUD/GERD, perforated viscous, threatened AB, UTI/pyelo Plan of Care: Orders Procedure Date/time Status URINE 08/27 1909 Complete URINALYSIS 08/27 1909 Complete LIPASE 08/27 1909 Complete COMPREHENSIVE METABOLIC PANEL 08/27 1909 Complete CBC WITHOUT DIFFERENTIAL 08/27 1909 Complete AMYLASE 08/27 1909 Complete Laboratory Tests 08/27/161924: Urinalysis LIGHT H, Urine Color YEL, Urine Clarity HAZY H, Urine pH 6.0, Ur Specific Niland >= 1.030, Urine Protein TRACE H, Urine Ketones TRACE H, Urine Nitrite NEG, Urine Bilirubin NEG, Urine Urobilinogen 0.2, Ur Leukocyte Esterase NEG, Ur Microscopic SEDIMENT EXAMINED, Urine RBC RARE, Urine WBC 1-3 H, Ur Epithelial Cells MANY H, Urine Bacteria MANY H, Urine Mucus MOD H, Urine Hemoglobin NEG, Urine Glucose NEG, Urine Test NEGATIVE 08/27/161917: Anion Gap 14, Estimated GFR > 60, BUN/Creatinine Ratio 22.0, Glucose 89, Calcium 10.0, Total Bilirubin 0.6, AST 18, ALT 29, Alkaline Phosphatase 81, Total Protein 7.9, Albumin 4.6, Globulin 3.3, Albumin/Globulin Ratio 1.4, Amylase 55, Lipase 155, CBC w Diff MAN DIFF ORDERED, RBC 4.84, MCV 89.3, MCH 29.4, RDW 14.8 H, MPV 8.1, Gran % 71.4, Lymphocytes % 23.6, Monocytes % 4.1, Eosinophils % 0.5, Basophils % 0.4, Absolute Granulocytes 11.5 H, Segmented Neutrophils 66, Absolute Lymphocytes 3.8 H, Lymphocytes 28, Monocytes 4, Absolute Monocytes 0.7 H, Eosinophils 1, Absolute Eosinophils 0.1, Basophils 1, Absolute Basophils 0.1 , Platelet Estimate VERIFIED BY SMEAR, Normocytic RBCs VERIFIED, Normochromic RBCs VERIFIED, PUBS MCHC 32.9 L, Fld Total RBCs Counted 100 Diagnostic Imaging: Viewed by Me: CT Scan. Discussed w/RAD: CT Scan. Radiology Impression: SERVICE DATE: 08/27/16 EXAM TYPE: CAT - CT ABD & PELVIS W/O IV CONTRAS EXAMINATION: CT ABDOMEN AND PELVIS WITHOUT CONTRAST CLINICAL INFORMATION: Left-sided abdominal pain. Elevated white blood cell count. Concern for diverticulitis. COMPARISON: 08/09/2016. TECHNIQUE: Contiguous axial thin section helical images of the abdomen and pelvis were performed without oral or IV contrast. The data set was reformatted in the coronal and sagittal planes and reviewed on an independent workstation. DLP: 962 mGy-cm. FINDINGS: The visualized lung bases are clear. The visualized portions of the heart are unremarkable. The liver is of normal size and attenuation without focal lesions nor intrahepatic biliary ductal dilation. A normal gallbladder is identified. There is no wall thickening or discernible pericholecystic fluid. The spleen, pancreas, adrenal glands are unremarkable. Both kidneys are of normal size and attenuation without hydronephrosis or nephrolithiasis. There is no abdominal free fluid. There is neither mesenteric nor retroperitoneal lymphadenopathy. Normal unopacified loops of small and large bowel are identified. A normal appendix is identified. There is no pelvic free fluid. The urinary bladder is unremarkable. There is neither pelvic nor inguinal lymphadenopathy. Bone windows: Neither sclerotic nor lytic bone lesions are identified. Posterior spinal fusion hardware extending from L5 to S1 is intact without failure or migration. There is a likely vertebral hemangioma at L1. IMPRESSION: No evidence for acute abdominal or pelvic inflammatory or infectious processes. Trace likely physiologic pelvic free fluid. DICTATED BY: ABY LOPEZ MD DATE/TIME DICTATED:08/27/162120 Initial ED EKG: none Comments: 08/27/2016 10:07:32 PM No acute findings except slightly elevated white count. Patient clinically looks well. No acute abdomen. No suspicion for C. difficile colitis. Patient is going to follow-up with imaging analyst. Return immediately concerns. Patient understands and agrees with plan of care. (YADI BARNES) Departure Departure Disposition: HOME OR SELF CARE Condition: Stable Clinical Impression Primary Impression: Abdominal pain Referrals: ZAKI BRAVO,GHAZAL Ruiz (PCP/Family) Additional Instructions: Take Percocet for pain. Follow-up with imaging analyst. Return if any concerns worsening symptoms. Please go over all results of today's visit with your primary care doctor. Contact your primary care doctor to let them know you were here in the emergency room. There may be nonspecific findings which may not be related to your visit today here in the emergency room but may require further evaluation and chronic monitoring by your primary care doctor. If you had a laceration today the chance of foreign body always remains. You should follow-up with your primary care doctor for recheck in 3-5 days for a wound check. If you had an x-ray done there is a chance that a fracture could have been missed on initial read and you should follow-up with your primary care doctor for repeat x-rays if symptoms persist. If your blood pressure was elevated here in the emergency room please have rechecked by her primary care doctor within the next 48 hours by your primary care doctor. If you were prescribed a narcotic here in the emergency room or any type of controlled substances you're not allowed to drive while taking this medication or operate any type of heavy machinery. Narcotics can make you feel lightheaded dizziness nausea and can cause constipation. You may need to case picker a stool softener. Thank you for choosing [facility] emergency room. Please return to the emergency room immediately if you have any other concerns worsening of symptoms. Departure Forms: Customer Survey General Discharge Information Prescriptions: Current Visit Scripts Oxycodone HCl/Acetaminophen (Percocet 5-325 MG Tablet) 1-2 TAB PO Q6P PRN pain #10 TAB Ondansetron (Zofran Odt) 1 TAB SL TID #10 TAB (YADI BARNES) PA/STATIONARY ENGINEER Co-Sign Statement Statement: ED Attending supervision documentation- [] I saw and evaluated the patient. I have also reviewed all the pertinent lab results and diagnostic results. I agree with the findings and the plan of care as documented in the PA's/STATIONARY ENGINEER's documentation. [X] I have reviewed the ED Record and agree with the PA's/STATIONARY ENGINEER's documentation. [] Additions or exceptions (if any) to the PAs/STATIONARY ENGINEER's note and plan are summarized below: [] (YA MONGE,MOI Spaulding)
[2016-08-27] MEDS ORDERED: ZOFRAN ODT4 M1 SL (21:59)
== END 2016-08-27 22:00 ==
LOC: ERH 18:42
PROVIDERS: Emergency Medicine
DX: R10.9 Unspecified abdominal pain (principal)
CPT/HCPCS: 74176; 81001; 81025; 96374; 96375; J2405

== ENCOUNTER 2016-08-31 20:23 | Emergency (ER) | payer OTHER ==
[~2016-08-31] VITALS: Ht 177.8 cm; Wt 108.0 kg
[~2016-08-31 20:23] MED LIST changes: +ALPRAZOLAM1 M2 PO; +ZOFRAN ODT4 M1 SL; +ZOLPIDEM TARTRA10 M1 PO
[2016-08-31 20:25] VITALS: BP 149/89
--- NOTE | 2016-08-31 20:27 | ED GI/GU/ABDOMINAL COMPLAINT ---
History of Present Illness General Chief Complaint: Abdominal Pain/Flank Pain Stated Complaint: L SIDED ABD PAIN Source: patient, family Exam Limitations: no limitations Vital Signs & Intake/Output Vital Signs & Intake/Output Vital Signs Date Time Temp Pulse Resp B/P B/P Pulse O2 O2 Flow FiO2 Mean Ox Delivery Rate 08/31 2044 Room Air Room Air 08/31 2024 99.3 111 18 149/89 99 Room Air ED Intake and Output 09/01 0000 08/31 1200 Intake Total 500 Output Total Balance 500 Intake, IV 500 Patient 238 lb Weight Weight Reported by Patient Measurement Method Allergies Coded Allergies: Penicillins (Intermediate, ITCHY HIVES AND WELTS 08/31/16) adhesive tape (Intermediate, RED WELTS 08/31/16) aspirin (HIVES 08/31/16) hydrocodone (HIVES 08/31/16) red dye (SWOLLEN TOUNGE 08/31/16) Reconcile Medications Albuterol Sulfate 2.5 MG/3 ML VIAL.NEB 1 Vial INH/TANJA PRN ASTHMA/COPD/ EMPHYSEMA (Reported) Alprazolam 1 MG TABLET 1 TAB PO BID ANXIETY (Reported) Benzonatate 100 MG CAPSULE 1 CAP PO TID COUGH (Reported) Cyclobenzaprine HCl (Fexmid) 7.5 MG TABLET 1 TAB PO BID MUSCLE SPASMS ( Reported) Esomeprazole (Nexium) 40 MG CAPSULE.DR 1 CAP PO DAILY GI (Reported) Fluticasone Propionate (Flovent Hfa) 12 GM AER.W.ADAP 2 PUF INH BID ASTHMA/ COPD/EMPHYSEMA (Reported) Ipratropium/Albuterol Sulfate (Combivent Respimat Inhal [place]) 4 GM MIST.INHAL 2-3 PUFF INH DAILY ASTHMA/COPD/EMPHYSEMA (Reported) Lurasidone HCl (Latuda) 60 MG TABLET 1 TAB PO QPM MENTAL HEALTH (Reported) Naloxone HCl (Narcan) 4 MG SPRAY 4 MG ELISEO AD PRN OPIOID OVERUSE (Reported) Ondansetron (Zofran Odt) 4 MG TAB.RAPDIS 1 TAB SL TID nausea Ondansetron (Zofran Odt) 4 MG TAB.RAPDIS 1 TAB SL TID N/V Oxycodone HCl/Acetaminophen (Percocet 5-325 MG Tablet) 5 MG-325 MG TABLET 1-2 TAB PO Q6P PRN pain Paroxetine HCl 30 MG TABLET 1 TAB PO QHS MENTAL HEALTH (Reported) Quetiapine Fumarate (Seroquel XR) 300 MG TAB.ER.24H 1 TAB PO QPM MENTAL HEALTH (Reported) Zolpidem Tartrate 10 MG TABLET 1 TAB PO QPM SLEEP (Reported) Triage Nurses Notes Reviewed? yes ? n Is pt currently ? No HPI: 46 yo F PMH PUD, COPD, Chronic Pain Syndrome presenting with nausea/vomiting, abdominal pain. Intermittent left upper quadrant abdominal pain for the last 5- 6 weeks, burning quality, sometimes worse after eatin and when laying flat in bed at night. Associated nausea with 1 episode of nonbloody nonbilious emesis yesterday, one episode of "coffee grounds" emesis this morning. Loose stools for the past 2-3 days, darker than usual. Normal PO intake despite Sx. denies fevers, chills, chest pain, shortness of breath, palpitations, constipation, raimundo hematochezia, urinary symptoms, headaches, dizziness or focal neurologic symptoms. Patient has been evaluated multiple times for similar complaints in this emergency department, CT of the abdomen and pelvis was unremarkable on 08/27, scheduled for outpatient follow-up with GI in the next 1-2 weeks. (LESLY MONGE,AMELIA) Past History Medical History Any Pertinent Medical History? see below for history Neurological: NONE EENT: NONE Cardiovascular: NONE Respiratory: asthma, COPD, emphysema Gastrointestinal: NONE Hepatic: NONE Renal: NONE Musculoskeletal: chronic back pain, disk herniation, fracture, PAIN MANAGEMENT PULVERIZED HEEL Psychiatric: anxiety, chronic pain disorder, IN PAIN MANAGEMENT Endocrine: NONE Blood Disorders: NONE Cancer(s): NONE WATERSHED ENGINEER/Reproductive: NONE Tetanus Vaccine: 11/02/14 Surgical History Surgical History: DISCECTOMY RODS/SCREWS/DOWELS BACK Psychosocial History What is your primary language Georgian Family History Hx Contributory? Yes (LESLY MONGE,AMELIA) Review of Systems Review of Systems Constitutional: Reports: malaise, weakness. EENTM: Reports: no symptoms. Respiratory: Reports: no symptoms. Cardiovascular: Reports: no symptoms. GI: Reports: abdominal pain, diarrhea, nausea, bloody stool, vomiting. Genitourinary: Reports: no symptoms. Musculoskeletal: Reports: no symptoms. Skin: Reports: no symptoms. Neurological/Psychological: Reports: no symptoms. Hematologic/Endocrine: Reports: no symptoms. Immunologic/Allergic: Reports: no symptoms. All Other Systems: Reviewed and Negative (LESLY MONGE,AMELIA) Physical Exam Physical Exam General Appearance: well developed/nourished, no apparent distress, alert, awake , anxious Head: atraumatic, normal appearance Eyes: Bilateral: normal appearance. Ears, Nose, Throat, Mouth: moist mucous membrane Neck: normal inspection, full range of motion Respiratory: normal breath sounds, no respiratory distress, lungs clear Cardiovascular: regular rate/rhythm, normal peripheral pulses Gastrointestinal: soft Comments: Abdomen: Moderate left upper quadrant and epigastric tenderness palpation without rebound or guarding Rectal: No masses palpated in rectal vault, light brown guaiac negative stool Core Measures ACS in differential dx? No Severe Sepsis Present: No Septic Shock Present: No (LESLY MONGE,AMELIA) Progress Differential Diagnosis: biliary colic, bowel obstruction, colon cancer, diverticulitis, gastritis, hemorrhoids, peptic ulcer, PUD/GERD Plan of Care: Orders Procedure Date/time Status LIPASE 09/01 2027 Complete LACTIC ACID 09/01 2027 Complete COMPREHENSIVE METABOLIC PANEL 09/01 2027 Complete CBC WITHOUT DIFFERENTIAL 09/01 2027 Complete Laboratory Tests 08/31/162048: Anion Gap 13, Estimated GFR > 60, BUN/Creatinine Ratio 24.0, Glucose 105 H, Lactic Acid 1.3, Calcium 9.2, Total Bilirubin 0.5, AST 15, ALT 24, Alkaline Phosphatase 65, Total Protein 6.7, Albumin 3.8, Globulin 2.9, Albumin/Globulin Ratio 1.3, Lipase 45, CBC w Diff NO MAN DIFF REQ, RBC 4.31, MCV 89.6, MCH 29.5, RDW 14.6 H, MPV 8.2, Gran % 67.3, Lymphocytes % 26.3, Monocytes % 4.5, Eosinophils % 1.0, Basophils % 0.9, Absolute Granulocytes 7.5 H, Absolute Lymphocytes 2.9, Absolute Monocytes 0.5, Absolute Eosinophils 0.1, Absolute Basophils 0.1, PUBS MCHC 32.9 L Physician MDM: 46 yo F presenting with acute on chronic LUQ pain, N/V, coffee grounds emesis. Tachycardic in 100s, anxious, tearful, abdomen exam as above. DDx: GERD, gastritis, peptic ulcer disease, biliary pathology, upper GI bleed, overall low concern for hemodynamically significant GI bleed or surgical abdominal pathology. Given 500 mL of fluid, Zofran, morphine with marked improvement in pain and heart rate. CBC, CMP, lipase unremarkable, similar to recent values in EMR. Given patient has a stable hemoglobin and is not anemic with guaiac-negative stool, low concern for acute peptic ulcer bleed. Once patient was informed that I would be unable to obtain GI consult for endoscopy for her this evening and that I would not be sending her home with any long-term narcotics prescriptions, she requested discharge. Given improvement in symptoms /vital signs and reassuring ED evaluation with lab work at patient's baseline, she is safe for [facility]. Discharged with return precautions, plan for close follow-up with GI and pain management. The plan of care was discussed with the patient who expressed agreement and understanding. (LESLY MONGE,AMELIA) Initial ED EKG: none (LESLY MONGE,AMELIA) Departure Departure Disposition: HOME OR SELF CARE Condition: Stable Clinical Impression Primary Impression: Abdominal pain Qualifiers: Abdominal location: left upper quadrant Qualified Code: R10.12 - Left upper quadrant pain Referrals: ZAKI BRAVO,GHAZAL Ruiz (PCP/Family) Additional Instructions: Take tylenol for pain. Take zofran for nausea and vomiting. Follow up with gastroenterology as scheduled. Return to the ED for any new, worsening, or concerning symtoms. Departure Forms: Customer Survey General Discharge Information Prescriptions: Current Visit Scripts Ondansetron (Zofran Odt) 1 TAB SL TID #15 TAB (LESLY MONGE,AMELIA) PA/VIDEOGAME DESIGNER Co-Sign Statement Statement: ED Attending supervision documentation- [] I saw and evaluated the patient. I have also reviewed all the pertinent lab results and diagnostic results. I agree with the findings and the plan of care as documented in the PA's/VIDEOGAME DESIGNER's documentation. [X] I have reviewed the ED Record and agree with the PA's/VIDEOGAME DESIGNER's documentation. [] Additions or exceptions (if any) to the PAs/VIDEOGAME DESIGNER's note and plan are summarized below: [] (FLORES CHANG DO
[2016-08-31 21:09] LABS: ABSOLUTE BASOPHIL COUNT 0.1 /CUMM (0.0-0.2); ABSOLUTE EOSINOPHIL COUNT 0.1 /CUMM (0.0-0.7); ABSOLUTE GRANULOCYTE CT 7.5 /CUMM (1.4-6.5); ABSOLUTE LYMPH COUNT 2.9 /CUMM (1.2-3.4); ABSOLUTE MONOCYTE COUNT 0.5 /CUMM (0.10-0.60); BASOPHIL % 0.9 % (0.0-2.0); GRANULOCYTE % 67.3 % (42.2-75.2); HEMATOCRIT 38.7 % (37-47); MEAN CORPUSCULAR HGB 29.5 PG (27.0-31.0); MEAN CORPUSCULAR HGB CONC 32.9 G/DL (33.0-37.0); MEAN CORPUSCULAR VOLUME 89.6 FL (81.0-99.0); MEAN PLATELET VOLUME 8.2 FL (7.4-10.4); PLATELET COUNT 271 /CUMM (130-400); RBC DISTRIBUTION WIDTH 14.6 % (11.5-14.5); RED BLOOD CELL CT 4.31 /CUMM (4.20-5.40); WHITE BLOOD CELL COUNT 11.1 /CUMM (4.8-10.8)
[2016-08-31] MEDS ORDERED: ZOFRAN ODT4 M1 SL (21:53)
== END 2016-08-31 22:06 ==
LOC: ERH 20:23
PROVIDERS: Student in an Organized Health Care Education/Training Program
DX: R10.12 Left upper quadrant pain (principal)
CPT/HCPCS: 96361; 96374; 96375; 96376; J2765

== ENCOUNTER 2016-09-01 13:33 | Emergency (ER) | payer OTHER ==
--- NOTE | 2016-09-01 14:01 | ED AMS/SEIZURE/WEAK/DIZZY ---
History of Present Illness General Chief Complaint: Abdominal Pain/Flank Pain Stated Complaint: BIBA, ABD PAIN, UNRESPONSIVE Source: EMS Exam Limitations: unable to give history Vital Signs & Intake/Output Vital Signs & Intake/Output Vital Signs Date Time Temp Pulse Resp B/P B/P Pulse O2 O2 Flow FiO2 Mean Ox Delivery Rate 09/01 1537 98.7 85 18 125/70 98 09/01 1407 100 Nasal 2.0L Cannula 09/01 1347 97.6 103 18 142/72 100 Nasal 2.0L Cannula Allergies Coded Allergies: Penicillins (Intermediate, ITCHY HIVES AND WELTS 08/31/16) adhesive tape (Intermediate, RED WELTS 08/31/16) aspirin (HIVES 08/31/16) hydrocodone (HIVES 08/31/16) red dye (SWOLLEN TOUNGE 08/31/16) Reconcile Medications Albuterol Sulfate 2.5 MG/3 ML VIAL.NEB 1 Vial INH/TANJA PRN ASTHMA/COPD/ EMPHYSEMA (Reported) Alprazolam 1 MG TABLET 1 TAB PO BID ANXIETY (Reported) Benzonatate 100 MG CAPSULE 1 CAP PO TID COUGH (Reported) Cyclobenzaprine HCl (Fexmid) 7.5 MG TABLET 1 TAB PO BID MUSCLE SPASMS ( Reported) Esomeprazole (Nexium) 40 MG CAPSULE.DR 1 CAP PO DAILY GI (Reported) Fluticasone Propionate (Flovent Hfa) 12 GM AER.W.ADAP 2 PUF INH BID ASTHMA/ COPD/EMPHYSEMA (Reported) Ipratropium/Albuterol Sulfate (Combivent Respimat Inhal [place]) 4 GM MIST.INHAL 2-3 PUFF INH DAILY ASTHMA/COPD/EMPHYSEMA (Reported) Lurasidone HCl (Latuda) 60 MG TABLET 1 TAB PO QPM MENTAL HEALTH (Reported) Naloxone HCl (Narcan) 4 MG SPRAY 4 MG ELISEO AD PRN OPIOID OVERUSE (Reported) Ondansetron (Zofran Odt) 4 MG TAB.RAPDIS 1 TAB SL TID nausea Ondansetron (Zofran Odt) 4 MG TAB.RAPDIS 1 TAB SL TID N/V Oxycodone HCl/Acetaminophen (Percocet 5-325 MG Tablet) 5 MG-325 MG TABLET 1-2 TAB PO Q6P PRN pain Paroxetine HCl 30 MG TABLET 1 TAB PO QHS MENTAL HEALTH (Reported) Quetiapine Fumarate (Seroquel XR) 300 MG TAB.ER.24H 1 TAB PO QPM MENTAL HEALTH (Reported) Zolpidem Tartrate 10 MG TABLET 1 TAB PO QPM SLEEP (Reported) Triage Nurses Notes Reviewed? yes HPI: Patient presented unresponsive to the emergency department and was unable to provide history. Past History Travel History Traveled to [place] past 21 day No Medical History Any Pertinent Medical History? see below for history Neurological: NONE EENT: NONE Cardiovascular: NONE Respiratory: asthma, COPD, emphysema Gastrointestinal: NONE Hepatic: NONE Renal: NONE Musculoskeletal: chronic back pain, disk herniation, fracture, PAIN MANAGEMENT PULVERIZED HEEL Psychiatric: anxiety, chronic pain disorder, depression, IN PAIN MANAGEMENT PTSD ANGER ISSUES Endocrine: NONE Blood Disorders: NONE Cancer(s): NONE SCIENCE LIAISON/Reproductive: NONE Tetanus Vaccine: 11/02/14 Surgical History Surgical History: DISCECTOMY RODS/SCREWS/DOWELS BACK Psychosocial History What is your primary language Romansh Tobacco Use: Current Daily Use Daily Tobacco Use Amount/Type: => 5 Cigarettes daily Family History Hx Contributory? No Review of Systems Review of Systems Constitutional: Reports: see HPI. Comments Patient unable to provide review of systems Physical Exam Physical Exam General Appearance: SEE BELOW Comments: Gen.: Well-nourished, well-developed, no acute respiratory distress. Unresponsive. Head: Normocephalic, atraumatic. Eyes: Normal inspection bilaterally, pupils midpoint and reactive Ears: Normal inspection bilaterally Nose: Normal inspection Throat/mouth : Moist mucosa, drool emanating from the right side of the mouth Neck: Supple, full range of motion, no goiter Heart: Rapid but otherwise Regular rate and rhythm, no murmurs rubs or gallops Lungs: Clear to auscultation bilaterally with normal air entry Chest: Nontender Back: Normal range of motion Abdomen: Soft, nontender, nondistended, normal bowel sounds Extremities: No spontaneous movements, equal radial and dorsalis pedis pulses, no cyanosis clubbing or edema Neurologic: Unable to assess Skin: warm and dry Psychiatric: Unable to assess Core Measures ACS in differential dx? No CVA/TIA Diagnosis: No Severe Sepsis Present: No Septic Shock Present: No Progress Differential Diagnosis: alcohol intoxication, CVA/stroke, dehydration, electrolyte imbalance, hypoglycemia, hypoxia, seizure disorder Plan of Care: Orders Procedure Date/time Status Saline Lock 09/01 1343 Active URINE DRUG SCREEN FOR ER ONLY 09/01 1343 Complete URINALYSIS 09/01 1343 Complete THYROID STIMULATING HORMONE 09/01 1343 Active TROPONIN LEVEL 09/01 1343 Active T3 UPTAKE (THYROXINE BIND CAP) 09/01 1343 Active THYROXINE 09/01 1343 Active PROLACTIN 09/01 1343 Active ETHANOL 09/01 1343 Active COMPREHENSIVE METABOLIC PANEL 09/01 134 Active CBC WITHOUT DIFFERENTIAL 09/01 1342 Complete EKG 09/01 134 Active Laboratory Tests 09/01/16 1536: Sodium Pending, Potassium Pending, Chloride Pending, Carbon Dioxide Pending, Anion Gap Pending, BUN Pending, Creatinine Pending, BUN/Creatinine Ratio Pending , Glucose Pending, Calcium Pending, Total Bilirubin Pending, AST Pending, ALT Pending, Alkaline Phosphatase Pending, Troponin I Pending, Total Protein Pending , Albumin Pending, Globulin Pending, Albumin/Globulin Ratio Pending, TSH Pending , Thyroxine (T4) Pending, Thyroxine Binding Indx Pending, Prolactin Pending, CBC w Diff NO MAN DIFF REQ, RBC 4.44, MCV 88.8, MCH 29.3, RDW 14.5, MPV 8.0, Gran % 55.1, Lymphocytes % 39.9, Monocytes % 3.7, Eosinophils % 0.5, Basophils % 0.8, Absolute Granulocytes 4.6, Absolute Lymphocytes 3.3, Absolute Monocytes 0.3, Absolute Eosinophils 0, Absolute Basophils 0.1, PUBS MCHC 33.0, Serum Alcohol Pending 09/01/16 1400: Urine Opiates Screen 132.00, Methadone Screen < 40, Barbiturate Screen < 60, Ur Phencyclidine Scrn < 6.00, Amphetamines Screen < 100, U Benzodiazepines Scrn 173 , Urine Cocaine Screen < 50, Urine Cannabis Screen < 5.00, Urine Color YEL, Urine Clarity CLEAR, Urine pH 6.5, Ur Specific [place] <= 1.005, Urine Protein NEG, Urine Ketones NEG, Urine Nitrite NEG, Urine Bilirubin NEG, Urine Urobilinogen 0.2, Ur Leukocyte Esterase NEG, Ur Microscopic EXAM NOT REQUIRED, Urine Hemoglobin NEG, Urine Glucose NEG Initial ED EKG: NSR, rate (91), no ST T wave changes Comments: 09/01/2016 2:00:09 PM patient is now awake alert and answering questions without specific treatment. Patient is complaining of severe left chest pain radiating into the intestines. She states this has been present for over a month and nobody is sure what it is due to. She states that she has both a GI specialist evaluation and pain management evaluation on . He has asked repeatedly for pain medication because the pain "makes her want to ". I've notified her that I could not give her pain medication safely given the nature of her presentation. 09/01/2016 3:48:50 PM Ms. Reveles has per repeatedly asked for pain medications. I have reviewed the [place] prescription monitoring website and she has had multiple narcotic prescriptions from a number of different physicians across a state of [place]. I've advised her of this and I have also advised her that I will not prescribe narcotic pain relievers under the circumstances. I presented her with the [place] prescription monitoring website's list of narcotic prescriptions and prescribers. She initially stated that she did not have anybody in [place] prescribing medications but provider are listed for [facility] and [facility]. I updated Ms. Reveles on her test results and that there are still lab tests pending. I will provide her an update once the evaluation is complete. 09/01/2016 3:59:02 PM Ms. Reveles has just left the emergency department AGAINST MEDICAL ADVICE. Patient's IV was noted to be in the room after she removed it herself. Departure Departure Disposition: HOME OR SELF CARE Condition: Stable Clinical Impression Primary Impression: Unresponsiveness Referrals: ZAKI BRAVO,GHAZAL Ruiz (PCP/Family) Departure Forms: Customer Survey General Discharge Information
--- NOTE | 2016-09-01 14:44 | RADIOLOGY REPORT ---
EXAMINATION: XR PORTABLE CHEST CLINICAL INFORMATION: Unresponsive. Evaluate for aspiration. COMPARISON: CXR from 08/10/2016 TECHNIQUE: Portable AP view of the chest was obtained. FINDINGS: Lungs are symmetrically expanded and clear. No acute consolidation, interstitial infiltrate or pleural effusion. Cardiac silhouette is normal in size. The mediastinal and hilar contours are normal. The bones are unremarkable. IMPRESSION: No acute cardiopulmonary abnormality. No evidence of aspiration pneumonia.
--- NOTE | 2016-09-01 14:47 | CT SCAN REPORT ---
EXAMINATION: CT HEAD WITHOUT CONTRAST CLINICAL INFORMATION: CVA. Trauma. Presents unresponsive COMPARISON: None TECHNIQUE: Contiguous axial imaging was performed from the skull base to vertex without intravenous administration of contrast. DLP: 601 mGy-cm FINDINGS: There is no evidence of acute intracranial hemorrhage or territorial infarction. No abnormal mass effect or midline shift is seen. Hester to white matter differentiation is well preserved. No extra-axial fluid collections are identified. The ventricles are normal in size. There is streak artifact resulting in alternating areas of hypodensity and hyperdensity within the mary and brainstem, likely artifactual. Also seen is streak artifact from metallic earrings which were not removed. Otherwise normal parenchymal attenuation. Hester-white differentiation is maintained. The osseous structures and soft tissues are normal. The mastoid air cells and visualized portions of the paranasal sinuses are well aerated. IMPRESSION: Artifact limits evaluation of the mary and brainstem. If there is clinical concern for pontine or brainstem abnormality, an MRI could be obtained. Otherwise, no acute intracranial abnormality identified.
[2016-09-01 15:37] VITALS: BP 125/70
[2016-09-01 15:45] LABS: ABSOLUTE BASOPHIL COUNT 0.1 /CUMM (0.0-0.2); ABSOLUTE EOSINOPHIL COUNT 0 /CUMM (0.0-0.7); ABSOLUTE GRANULOCYTE CT 4.6 /CUMM (1.4-6.5); ABSOLUTE LYMPH COUNT 3.3 /CUMM (1.2-3.4); ABSOLUTE MONOCYTE COUNT 0.3 /CUMM (0.10-0.60); BASOPHIL % 0.8 % (0.0-2.0); EOSINOPHIL % 0.5 % (0-5); GRANULOCYTE % 55.1 % (42.2-75.2); HEMATOCRIT 39.4 % (37-47); MEAN CORPUSCULAR HGB 29.3 PG (27.0-31.0); MEAN CORPUSCULAR VOLUME 88.8 FL (81.0-99.0); PLATELET COUNT 272 /CUMM (130-400); RBC DISTRIBUTION WIDTH 14.5 % (11.5-14.5); RED BLOOD CELL CT 4.44 /CUMM (4.20-5.40); WHITE BLOOD CELL COUNT 8.3 /CUMM (4.8-10.8)
== END 2016-09-01 16:22 ==
LOC: ERH 13:33
PROVIDERS: Emergency Medicine
DX: R40.20 Unspecified coma (principal); J44.9 Chronic obstructive pulmonary disease, unspecified; Z72.0 Tobacco use
CPT/HCPCS: 80307; 81003; 93005; 93010; G0480